=== PATIENT | female | born 1940 | race Caucasian/White ===

== ENCOUNTER 2018-08-20 07:18 | Day surgery (SDC) | payer MEDICARE, OTHER ==
[~2018-08-20 07:18] MED LIST: Lactated Ringers 1,000 ML IV SCH; Lidocaine 1%/Sod Bicarbonate in NS 8.4% 1 ML Syringe IDERM PRN; Sodium Chloride 0.9% 10 ML Syringe FLUSH PRN
[2018-08-20] MEDS ORDERED: Bupivacaine 0.25% 10 ML SDV ONE (07:23)
[2018-08-20] MEDS ORDERED: Propofol 200 MG/20 ML SDV ONE (07:47)
[2018-08-20] MEDS ORDERED: fentaNYL 100 MCG/2 ML SDV ONE (07:47)
[2018-08-20] MEDS ORDERED: Ondansetron 4 MG/2 ML SDV ONE (07:47)
[2018-08-20] MEDS ORDERED: Lidocaine 0.5% 50 ML SDV ONE (07:48)
[2018-08-20] MEDS ORDERED: Sodium Bicarbonate 8.4% 50 MEQ/50 ML SDV ONE (07:48)
[2018-08-20] MEDS ORDERED: ceFAZolin 1 GM Vial ONE (07:51)
--- NOTE | 2018-08-20 08:02 | PCM.PREANE ---
Preanesthetic Assessment - Anesthesia/Transfusion/Family Hx Anesthesia History: Prior Anesthesia Without Reaction Family History of Anesthesia Reaction: No Transfusion History: No Prior Transfusion(s) - Review of Systems General: No Symptoms Pulmonary: No Symptoms Cardiovascular: No Symptoms Gastrointestinal: Abdominal Pain, Nausea Neurological: No Symptoms Other: Reports: None - Physical Assessment NPO Status Date: 08/19/18 NPO Status Time: 00:00 Pulse: 62 O2 Sat by Pulse Oximetry: 94 Respiratory Rate: 16 Blood Pressure: 114/68 Temperature: 36.3 C Height: 1.63 m Weight: 73 kg ASA Class: 2 Mental Status: Alert & Oriented x3 Airway Class: Mallampati = 1 Dentition: Reports: Normal Dentition, Fidelis(s) Thyro-Mental Finger Breadths: 3 Mouth Opening Finger Breadths: 3 ROM/Head Extension: Full Lungs: Clear to Auscultation, Normal Respiratory Effort Cardiovascular: Regular Rate, Regular Rhythm, No Murmurs - Allergies Allergies/Adverse Reactions: Allergies Allergy/AdvReac Type Severity Reaction Status Date / Time No Known Allergies Allergy Verified 08/19/18 13:32 - Blood Blood Available: No Product(s) Available: None - Anesthesia Plan Pre-Op Medication Ordered: None - Acknowledgements Anesthesia Type Planned: JEN Pt an Appropriate Candidate for the Planned Anesthesia: Yes Alternatives and Risks of Anesthesia Discussed w Pt/Guardian: Yes Pt/Guardian Understands and Agrees with Anesthesia Plan: Yes PreAnesthesia Questionnaire HEENT History: Reports: Impaired Vision Cardiovascular History: Reports: High Cholesterol Respiratory History: Reports: None Gastrointestinal History: Reports: None Genitourinary History: Reports: None [employer]ING [employer]ENT History: Reports: None Musculoskeletal History: Reports: Other (See Below) Other Musculoskeletal History: radial styloid tenosynovitis Neurological History: Reports: Other (See Below) Other Neuro History: memory loss Psychiatric History: Reports: None Endocrine/Metabolic History: Reports: None Hematologic History: Reports: None Immunologic History: Reports: None Oncologic (Cancer) History: Reports: None Dermatologic History: Reports: None - Past Surgical History Head Surgeries/Procedures: Reports: None Cardiovascular Surgical History: Reports: None Respiratory Surgical History: Reports: None GI Surgical History: Reports: Colonoscopy, EGD Female Surgical History: Reports: Hysterectomy Male Surgical History: Reports: None Endocrine Surgical History: Reports: None Neurological Surgical History: Reports: None Musculoskeletal Surgical History: Reports: None Oncologic Surgical History: Reports: None Dermatological Surgical History: Reports: None - SUBSTANCE USE Smoking Status *Q: Never Smoker Tobacco Use Within Last Twelve Months: No Second Hand Smoke Exposure: No Days Per Week of Alcohol Use: 1 Number of Drinks Per Day: 0 Total Drinks Per Week: 0 Recreational Drug Use History: No - HOME MEDS Home Medications: Home Meds . [Unable to Verify Home Med List] 08/19/18 [History] - CURRENT (IN HOUSE) MEDS Current Meds: Current Medications Lactated Ringer's (Ringers, Lactated) 1,000 mls @ 125 mls/hr IV ASDIRECTED JOHNNY Stop: 08/20/18 23:00 Lidocaine/Sodium Bicarbonate (Buffered Lidocaine 1% In Ns 8.4%) 0.25 ml IDERM ONETIME PRN PRN Reason: Prior to IV Start Stop: 08/20/18 18:00 Sodium Chloride (Saline Flush) 10 ml FLUSH ASDIRECTED PRN PRN Reason: Keep Vein Open Stop: 08/20/18 18:00 Discontinued Medications Bupivacaine HCl (Sensorcaine-Mpf 0.25%) Confirm Administered Dose 20 ml .ROUTE .STK-MED ONE Stop: 08/20/18 07:24 Cefazolin Sodium (Ancef) Confirm Administered Dose 2 gm .ROUTE .STK-MED ONE Stop: 08/20/18 07:52 Fentanyl (Sublimaze) Confirm Administered Dose 100 mcg .ROUTE .STK-MED ONE Stop: 08/20/18 07:48 Lidocaine HCl (Xylocaine-Mpf 0.5%) Confirm Administered Dose 50 ml .ROUTE .STK- MED ONE Stop: 08/20/18 07:49 Ondansetron HCl (Zofran) Confirm Administered Dose 4 mg .ROUTE .STK-MED ONE Stop: 08/20/18 07:48 Propofol (Diprivan 20 Ml) Confirm Administered Dose 200 mg .ROUTE .STK-MED ONE Stop: 08/20/18 07:48 Sodium Bicarbonate (Sodium Bicarbonate 8.4%) Confirm Administered Dose 50 meq .ROUTE .STK-MED ONE Stop: 08/20/18 07:49
--- NOTE | 2018-09-01 16:24 | OR ---
DATE OF OPERATION: 08/20/2018 SURGEON: Bubba Yoon MD PREOPERATIVE DIAGNOSIS: Right de Quervain tenosynovitis, M65.4. POSTOPERATIVE DIAGNOSIS: Right de Quervain tenosynovitis, M65.4. OPERATION PERFORMED: 1. Right first dorsal compartment release, 13797. 2. Synovectomy of the first of dorsal compartment tendons, 69163. R D INTERN: Corie Castillo. DESCRIPTION OF PROCEDURE: Ms. Alejandre is a pleasant 78-year-old female with symptomatic de Quervain tenosynovitis. She had failed all conservative management and wished to proceed with surgery. The patient was brought to the operating room, underwent a Cristhian blockade. The right upper extremity was prepped and draped in a standard orthopedic fashion. A surgical pause was performed identifying the appropriate patient and appropriate extremity to be operated upon. Preoperative antibiotics were given. An incision was made over the radial styloid. Sharp dissection was carried down through the skin and subcutaneous tissue. Hemostasis was obtained. Identified the superficial branch of the radial nerve, which was mobilized and protected throughout the case. We incised the dorsal aspect of the first dorsal compartment extensor retinaculum. We opened up the extensor tendon sheath. The APL and EPB tendons were within the same compartment. I see the modest amount of synovitis. We did a synovectomy of the first dorsal compartment tendons. Irrigated the wound thoroughly, closed the skin with 5-0 nylon. She was placed in the well-padded splint and brought to recovery room in satisfactory condition. ANESTHESIA: ESTIMATED BLOOD LOSS: MMODAL /[id number]
== END 2018-08-20 10:15 | disposition home or self-care (01) ==
LOC: JD.SDS 07:18
PROVIDERS: ATTEND Orthopaedic Surgery
DX: M65.4 Radial styloid tenosynovitis [de Quervain] (principal); I10 Essential (primary) hypertension; E66.3 Overweight; Z68.28 Body mass index [BMI] 28.0-28.9, adult; E78.00 Pure hypercholesterolemia, unspecified; Z79.82 Long term (current) use of aspirin; Z79.899 Other long term (current) drug therapy
CPT/HCPCS: 25000; 25118; 87641; J0690; J2405; J2704; J3010; J3490; J7120; 01810